=== PATIENT | male | born 1935 ===

== ENCOUNTER 2024-11-29 13:33 | Emergency (ER) | payer SELFPAY ==
[2024-11-29 14:01] LABS: Bacteria/HPF None Seen HPF (None Seen); CAUTI Indications for Culture Alt mental st,lethar; Glucose, Urine (Dipstick) 300 mg/dL (Negative); Leukocyte Negative Leu/uL (Negative); Protein, Urine (Dipstick) 70 mg/dL (Neg-Trace); RBC/HPF 0-3 HPF (0-3); Specific Gravity, Urine 1.023 (1.002-1.036); WBC/HPF 0-3 HPF (0-3)
[2024-11-29 14:04] LABS: Urine Culture Reflex No No
== END 2024-11-29 15:04 ==
LOC: ERS 13:33
DX: F03.90 Unspecified dementia, unspecified severity, without behavioral disturbance, psychotic disturbance, mood disturbance, and anxiety (principal); I10 Essential (primary) hypertension
CPT/HCPCS: 81001; 99284